=== PATIENT | female | born 1995 | race Caucasian/White ===

== ENCOUNTER → 2017-07-01 | Outpatient (CLI) | payer OTHER | END | disposition home or self-care (01) | LOC: KCIC CT 10:07 | DX: N39.0 Urinary tract infection, site not specified (principal); N20.0 Calculus of kidney; I87.8 Other specified disorders of veins; J45.909 Unspecified asthma, uncomplicated; Z87.442 Personal history of urinary calculi | CPT/HCPCS: 74176 ==